=== PATIENT | female | born 1975 | race Caucasian/White ===

== ENCOUNTER 2016-09-23 13:18 | Emergency (ER) | payer OTHER ==
[2016-09-23 13:32] VITALS: BMI 23.0
--- NOTE | 2016-09-23 14:35 | PDOC ---
History of Present Illness - General History Source: Patient Exam Limitations: No Limitations - History of Present Illness Initial Comments: 09/23/16 16:01 The patient is a 41 year old female with no significant past medical history, who presents to the ER with palpitations, headache, and chest pain for one day. Patient states the symptoms are on and off. She localizes the chest pain to the center. She says her symptoms initially begin with loss of sleep, then anxiety, then chest pain and headache. Patient states she feels palpitations and often throbbing sensations in the ear. She denies nausea, vomiting, abdominal pain, fever, chills, or cough. <Patria Osuna - Last Filed: 09/23/16 16:01> <Jc Garcia - Last Filed: 09/24/16 08:48> - General Chief Complaint: Tachycardia Stated Complaint: TACHYCARDIA, HEADACHES Past History <Patria Osuna - Last Filed: 09/23/16 16:01> - Past Medical History Other medical history: denies - Psycho/Social/Smoking Cessation Hx Suicidal Ideation: No Smoking History: Never smoked Information on smoking cessation initiated: No Hx Alcohol Use: No Drug/Substance Use Hx: No Substance Use Type: None <Jc Garcia - Last Filed: 09/24/16 08:48> - Past Medical History Allergies/Adverse Reactions: Allergies Allergy/AdvReac Type Severity Reaction Status Date / Time Penicillins Allergy Verified 09/23/16 13:32 Home Medications: Ambulatory Orders Alprazolam [Xanax] 0.25 mg PO Q8H PRN #5 tablet MDD 3 09/23/16 Review of Systems - Review of Systems Able to Perform ROS?: Yes Comments:: 09/23/16 16:01 CONSTITUTIONAL: Absent: fever, no chills, no fatigue EYES: Absent: visual changes ENT: Absent: ear pain, no sore throat CARDIOVASCULAR: Present: chest pain, palpitations RESPIRATORY: Absent: cough, no SOB GI: Absent: abdominal pain, no nausea, no vomiting, no constipation, no diarrhea GENITOURINARY: Absent: dysuria, no frequency, no hematuria MUSCULOSKELETAL: Absent: back pain, no arthralgia, no myalgia SKIN: Absent: rash NEURO: Present: headache <ThaoPatria - Last Filed: 09/23/16 16:01> *Physical Exam - Vital Signs Last Vital Signs Temp Pulse Resp BP Pulse Ox 99.2 F 88 17 127/84 99 09/23/16 13:30 09/23/16 15:56 09/23/16 15:56 09/23/16 13:30 09/23/16 15:56 - Physical Exam Comments: 09/23/16 16:02 GENERAL: Well-appearing, well-nourished. Appears teary eyed. HEENT: Dry mucous membranes. Normocephalic, atraumatic. PERRL, EOM intact. CARDIOVASCULAR: Normal S1, S2. Regular rate and rhythm. PULMONARY: Clear to auscultation bilaterally. ABDOMEN: Soft, non-distended, non-tender. EXTREMITIES: Normal ROM in all four extremities. No gross deformities. SKIN: Warm, dry. No rash NEUROLOGICAL: No focal neurological deficits. <Patria Osuna - Last Filed: 09/23/16 16:01> - Vital Signs Last Vital Signs Temp Pulse Resp BP Pulse Ox 99.2 F 105 H 18 127/84 99 09/23/16 13:30 09/23/16 13:30 09/23/16 13:30 09/23/16 13:30 09/23/16 13:30 <Jc Garcia - Last Filed: 09/24/16 08:48> ED Treatment Course - LABORATORY CBC & Chemistry Diagram: 09/23/16 14:45 09/23/16 14:45 - ADDITIONAL ORDERS Additional order review: Laboratory Results 09/23/16 14:45 Serum , Qual Negative Urine Color Yellow Urine Appearance Clear Urine pH 5.0 Ur Specific [place] 1.016 Urine Protein Negative Urine Glucose (UA) Negative Urine Ketones 2+ H Urine Blood Negative Urine Nitrite Negative Urine Bilirubin Negative Urine Urobilinogen Negative Ur Leukocyte Esterase Negative 09/23/16 14:45 Influenza Types A,B Antigen (NATALIE) - Final Nasopharyngeal Swab - Final 09/23/16 14:45 RBC 4.61 MCV 92.6 MCHC 33.2 RDW 12.9 MPV 9.3 Neutrophils % 76.6 Lymphocytes % 14.6 Monocytes % 7.4 Eosinophils % 0.8 Basophils % 0.6 - Medications Given in the ED: ED Medications Discontinued Medications Generic Name Dose Route Start Last Admin Trade Name Freq PRN Reason Stop Dose Admin Acetaminophen 650 mg 09/23/16 15:27 09/23/16 15:27 Tylenol - PO 09/23/16 15:28 650 mg NOW ONE Administration Sodium Chloride 1,000 mls @ 1,000 mls/hr 09/23/16 14:42 09/23/16 14:45 Normal Saline - IV 09/23/16 15:41 1,000 mls/hr ASDIR STA Administration <Patria Osuna - Last Filed: 09/23/16 16:01> - LABORATORY CBC & Chemistry Diagram: 09/23/16 14:45 09/23/16 14:45 <Jc Garcia - Last Filed: 09/24/16 08:48> *DC/Admit/Observation/Transfer - Attestations Scribe Attestion: 09/23/16 16:06 Documentation prepared by Patria Osuna, acting as center medical director for Jc Garcia MD, /DO. <Patria Osuna - Last Filed: 09/23/16 16:01> - Discharge Dispostion Admit: No <Jc Garcia - Last Filed: 09/24/16 08:48> Diagnosis at time of Disposition: Heart palpitations, Panic attack - Discharge Dispostion Disposition: HOME Condition at time of disposition: Improved - Prescriptions Prescriptions: Alprazolam [Xanax] 0.25 mg PO Q8H PRN #5 tablet MDD 3 PRN Reason: Anxiety - Patient Instructions Printed Discharge Instructions: Anxiety and Panic Attacks (Alternative Therapy) , DI for Palpitations Additional Instructions: Activity as tolerated. Stay hydrated. Blood tests and an EKG showed no acute abnormalities, only some dehydration. As discussed, take Xanax as prescribed only as needed for anxiety. You should follow up with your primary doctor as soon as possible regarding today's emergency department visit. Return to the emergency department for any new or concerning symptoms, particularly uncontrollable anxiety, persistent palpitations or chest pain, severe weakness or dehydration.
[2016-09-23] MEDS ORDERED: SODIUM CHLORIDE 1,000 ML IV STA ×2 (14:42→16:36)
[2016-09-23 15:20] LABS: BASOPHIL 0.6 % (0-2.0); EOSINOPHIL 0.8 % (0-4.5); MCH 30.8 pg (25.7-33.7); MCHC 33.2 g/dl (32.0-36.0); MEAN CELL VOLUME 92.6 fl (80-96); MEAN PLT VOLUME 9.3 fl (7.5-11.1); NEUTROPHILS 76.6 % (42.8-82.8); PLATELET COUNT 298 K/MM3 (134-434); RDW 12.9 % (11.6-15.6); WHITE BLOOD COUNT 8.6 K/mm3 (4.0-10.0)
[2016-09-23 15:22] LABS: URINE APPEARANCE CLEAR; URINE BILIRUBIN NEGATIVE (NEGATIVE); URINE BLOOD NEGATIVE (NEGATIVE); URINE COLOR YELLOW; URINE GLUCOSE (UA) NEGATIVE (NEGATIVE); URINE KETONE 2+ (NEGATIVE); URINE LEUK ESTERASE NEGATIVE (NEGATIVE); URINE NITRITE NEGATIVE (NEGATIVE); URINE PROTEIN NEGATIVE (NEGATIVE); URINE UROBILINOGEN NEGATIVE E.U./dl (0.2-1.0)
[2016-09-23] MEDS ORDERED: ACETAMINOPHEN 325 MG TABLET (FP) ONE (15:25)
[2016-09-23] MEDS ORDERED: ACETAMINOPHEN 325 MG TABLET (FP) PO ONE (15:27)
[2016-09-23 16:09] LABS: ALBUMIN 4.5 g/dl (3.4-5.0); ALK PHOS 57 U/L (45-117); ANION GAP 13 (8-16); BILIRUBIN,TOTAL 1.6 mg/dL (0.2-1.0); CALCIUM 9.2 mg/dL (8.5-10.1); CO2 25 mmol/L (21-32); CREATININE 0.7 mg/dL (0.55-1.02); GLUCOSE,RANDOM 81 mg/dL (74-106); SGOT/AST 11 U/L (15-37); SGPT/ALT 12 U/L (12-78); TOT PROT 7.8 g/dl (6.4-8.2)
[2016-09-23 17:05] LABS: TROPONIN I < 0.02 ng/ml (0.00-0.05)
--- NOTE | 2016-09-23 17:40 | PDOC ---
*Physical Exam - Vital Signs Last Vital Signs Temp Pulse Resp BP Pulse Ox 99.2 F 88 17 127/84 99 09/23/16 13:30 09/23/16 15:56 09/23/16 15:56 09/23/16 13:30 09/23/16 15:56 - Physical Exam Comments: 09/23/16 17:32 VSS, HR 74 well appearing, calm now abd benign cardiopulmonary exam normal ED Treatment Course - LABORATORY CBC & Chemistry Diagram: 09/23/16 14:45 09/23/16 14:45 - ADDITIONAL ORDERS Additional order review: Laboratory Results 09/23/16 09/23/16 14:45 14:45 Sodium 142 Potassium 4.1 Chloride 104 Carbon Dioxide 25 Anion Gap 13 BUN 9 Creatinine 0.7 Creat Clearance w eGFR > 60 Random Glucose 81 Calcium 9.2 Total Bilirubin 1.6 H AST 11 L ALT 12 Alkaline Phosphatase 57 Creatine Kinase 59 Troponin I < 0.02 Total Protein 7.8 Albumin 4.5 Serum , Qual Negative Urine Color Yellow Urine Appearance Clear Urine pH 5.0 Ur Specific [place] 1.016 Urine Protein Negative Urine Glucose (UA) Negative Urine Ketones 2+ H Urine Blood Negative Urine Nitrite Negative Urine Bilirubin Negative Urine Urobilinogen Negative Ur Leukocyte Esterase Negative 09/23/16 14:45 Influenza Types A,B Antigen (NATALIE) - Final Nasopharyngeal Swab - Final 09/23/16 14:45 RBC 4.61 MCV 92.6 MCHC 33.2 RDW 12.9 MPV 9.3 Neutrophils % 76.6 Lymphocytes % 14.6 Monocytes % 7.4 Eosinophils % 0.8 Basophils % 0.6 - Medications Given in the ED: ED Medications Discontinued Medications Generic Name Dose Route Start Last Admin Trade Name Freq PRN Reason Stop Dose Admin Acetaminophen 650 mg 09/23/16 15:27 09/23/16 15:27 Tylenol - PO 09/23/16 15:28 650 mg NOW ONE Administration Sodium Chloride 1,000 mls @ 1,000 mls/hr 09/23/16 14:42 09/23/16 14:45 Normal Saline - IV 09/23/16 15:41 1,000 mls/hr ASDIR STA Administration Medical Decision Making - Medical Decision Making 09/23/16 17:33 Received signout on this otherwise healthy 41-year-old female. Differential is viral syndrome and plan was to discharge after troponin and second liter of IV fluids. After discussion with the patient and her family, symptoms seem more consistent with anxiety attack, she has been recently anxious and describes constellation of palpitations with nervousness and brief headache. She now feels well, admits to stressors of late, and feels as though this was a panic attack. Never had one before. Labs are within normal limits, is negative, troponin returned and negative. EKG is sinus at 80 and normal, no ischemic changes. Feels well, tolerating by mouth, received IV fluids, and agrees with discharge plan. Will give brief course of anxiolytic as needed, understands return criteria, will follow-up with her primary physician. *DC/Admit/Observation/Transfer Diagnosis at time of Disposition: Heart palpitations, Panic attack - Discharge Dispostion Disposition: HOME Condition at time of disposition: Improved - Prescriptions Prescriptions: Alprazolam [Xanax] 0.25 mg PO Q8H PRN #5 tablet MDD 3 PRN Reason: Anxiety - Patient Instructions Printed Discharge Instructions: DI for Palpitations, Anxiety and Panic Attacks (Alternative Therapy) Additional Instructions: Activity as tolerated. Stay hydrated. Blood tests and an EKG showed no acute abnormalities, only some dehydration. As discussed, take Xanax as prescribed only as needed for anxiety. You should follow up with your primary doctor as soon as possible regarding today's emergency department visit. Return to the emergency department for any new or concerning symptoms, particularly uncontrollable anxiety, persistent palpitations or chest pain, severe weakness or dehydration.
[2016-09-23 17:53] VITALS: BP 109/74; PULSE 82; TEMP 97.9
--- NOTE | 2016-09-24 11:22 | EKG ---
Test Reason : Blood Pressure : / mmHG Vent. Rate : 080 BPM Atrial Rate : 080 BPM P-R Int : 116 ms QRS Dur : 086 ms QT Int : 366 ms P-R-T Axes : 069 000 027 degrees QTc Int : 422 ms NORMAL SINUS RHYTHM POSSIBLE LEFT ATRIAL ENLARGEMENT BORDERLINE ECG NO PREVIOUS ECGS AVAILABLE Confirmed by LOPEZ ROMERO, VEENA ([id number]) on 09/24/2016 11:21:50 AM Referred By: Confirmed By:VEENA MARROQUIN MD
== END 2016-09-23 17:52 | disposition home or self-care (01) ==
LOC: JER 13:18
PROC: 3E0337Z Introduction of Electrolytic and Water Balance Substance into Peripheral Vein, Percutaneous Approach (ICD-10-PCS; principal; 2016-09-23)
DX: R00.2 Palpitations (principal); F41.0 Panic disorder [episodic paroxysmal anxiety]
CPT/HCPCS: 36415; 80053; 81003; 82550; 84484; 84703; 85025; 87804; 93005; 93010; 96360; 96361; 99284-25

== ENCOUNTER 2017-01-06 09:02 | Emergency (ER) | payer OTHER ==
[2017-01-06 09:06] VITALS: BP 127/65; PULSE 73; TEMP 98.3; BMI 24.4
[2017-01-06] MEDS ORDERED: IBUPROFEN 400 MG TABLET (FP) PO ONE (09:40)
[2017-01-06] MEDS ORDERED: IBUPROFEN 400 MG TABLET (FP) PO PRN (09:46)
--- NOTE | 2017-01-06 10:05 | PDOC ---
History of Present Illness - General Chief Complaint: Pain Stated Complaint: LT THUMB PAIN Time Seen by Provider: 01/06/17 09:13 - History of Present Illness Initial Comments: 01/06/17 10:06 CHIEF COMPLAINT: pain to L thumb. HISTORY OF PRESENT ILLNESS: 41 yo F with no PMH presents to ED with pain to left thumb. Patient states she was lifting heavy groceries yesterday when she felt pain to her left thumb. Denies any impact or trauma to thumb. No recent travel or sick contacts. PAST MEDICAL HISTORY: Denies past medical history FAMILY HISTORY: Denies SOCIAL HISTORY: Denies tobacco, alcohol, illicit drug use. SURGICAL HISTORY: Denies ALLERGIES: PCN REVIEW OF SYSTEMS Musculoskeletal: Pain to L thumb. No loss of sensation. Ski: Denies rash or easy bruising. PHYSICAL EXAM General Appearance: Well-appearing, appropriately dressed. No apparent distress. Respiratory/Chest: Lungs CTAB. Cardiovascular: RRR. S1, S2. Musculoskeletal/Extremities: Normal inspection. FROM of all extremities, normal capillary refill. Pelvis Stable. No CVA tenderness. No tenderness to extremities, pedal edema, swelling, erythema or deformity. Integumentary: TTP to MCP of L thumb, full ROM to all fingers and wrist b/l. Minimal ecchymosis to proximal thumb. Neurovascularly intact, normal capillary refill, pulses 2+. Appropriate color, dry, warm. 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 Fully oriented, alert. Appropriate mood/affect. Motor strength 5/5. No appreciable EOM palsy, facial droop or sensory deficit. Past History - Past Medical History Allergies/Adverse Reactions: Allergies Allergy/AdvReac Type Severity Reaction Status Date / Time Penicillins Allergy Verified 01/06/17 09:06 Home Medications: Ambulatory Orders Alprazolam [Xanax] 0.25 mg PO Q8H PRN #5 tablet MDD 3 09/23/16 Naproxen 250 mg PO BID #20 tablet 01/06/17 Other medical history: denies - Psycho/Social/Smoking Cessation Hx Suicidal Ideation: No Smoking History: Never smoked Information on smoking cessation initiated: No Hx Alcohol Use: No Drug/Substance Use Hx: No Substance Use Type: None *Physical Exam - Vital Signs Last Vital Signs Temp Pulse Resp BP Pulse Ox 98.3 F 73 17 127/65 100 01/06/17 09:04 01/06/17 09:04 01/06/17 09:04 01/06/17 09:04 01/06/17 09:04 *DC/Admit/Observation/Transfer Diagnosis at time of Disposition: Left thumb sprain Qualifiers: Encounter type: initial encounter Sprain of finger site: metacarpophalangeal joint Qualified Code(s): S63.642A - Sprain of metacarpophalangeal joint of left thumb, initial encounter - Discharge Dispostion Disposition: HOME Condition at time of disposition: Stable Admit: No - Prescriptions Prescriptions: Naproxen 250 mg PO BID #20 tablet - Referrals Referrals: Brian Larose MD [Staff Physician] - - Patient Instructions Printed Discharge Instructions: DI for Finger Sprain Additional Instructions: As discussed, take medication as prescribed and follow up with orthopedics if symptoms persist past 2-3 days. If you experience any tingling, numbness, or loss of sensation to your finger, or any new or worsening symptoms, please return to the ER.
== END 2017-01-06 10:10 | disposition home or self-care (01) ==
LOC: JERFT 09:02
DX: S63.642A Sprain of metacarpophalangeal joint of left thumb, initial encounter (principal); X50.0XXA Overexertion from strenuous movement or load, initial encounter; Y93.89 Activity, other specified; Y92.89 Other specified places as the place of occurrence of the external cause; Y99.8 Other external cause status
CPT/HCPCS: 99281-25

== ENCOUNTER 2017-02-27 12:31 | Emergency (ER) | payer OTHER ==
[2017-02-27 12:36] VITALS: BP 128/76; PULSE 76; TEMP 98.3; BMI 27.0
--- NOTE | 2017-02-27 13:31 | PDOC ---
History of Present Illness - General Chief Complaint: Injury Stated Complaint: INJURY (RT FOOT) Time Seen by Provider: 02/27/17 13:08 History Source: Patient Exam Limitations: No Limitations - History of Present Illness Initial Comments: 02/27/17 13:48 My chief complaint: Right ankle laceration History of present illness: Patient is a 41-year-old female with no significant medical history here today after hitting her right lateral ankle on the corner of a sharp cabinet door prior to arrival here. Patient has a small laceration to right lateral ankle the patient reports would not stop bleeding so she came here. Patient reports that the area is tender to touch. Patient is up-to-date with tetanus. 02/27/17 13:50 Occurred: reports: just prior to arrival Severity: reports: mild Pain Location: reports: lower extremity (ankle ) Method of Injury: Yes: direct blow (to corner of a cabinet) Modifying Factors: improves with: None Loss of Consciousness: no loss of consciousness Associated Symptoms (Fall): other (rt. lateral ankle laceration) Past History - Past Medical History Allergies/Adverse Reactions: Allergies Allergy/AdvReac Type Severity Reaction Status Date / Time Penicillins Allergy Verified 02/27/17 12:36 Home Medications: Ambulatory Orders Alprazolam [Xanax] 0.25 mg PO Q8H PRN #5 tablet MDD 3 09/23/16 Naproxen 250 mg PO BID #20 tablet 01/06/17 Other medical history: PATIENT DENIES MEDICAL HISTORY - Psycho/Social/Smoking Cessation Hx Suicidal Ideation: No Smoking History: Never smoked Hx Alcohol Use: No Drug/Substance Use Hx: No Substance Use Type: None Review of Systems - Review of Systems Able to Perform ROS?: Yes Constitutional: No: Symptoms Reported HEENTM: No: Symptoms Reported Respiratory: No: Symptoms reported Cardiac (ROS): No: Symptoms Reported ABD/GI: No: Symptoms Reported : No: Symptoms Reported Musculoskeletal: Yes: Joint Pain (rt. lateral ankle ), Joint Swelling (slight rt. lateral ankle ) Integumentary: Yes: Other (laceration rt. lateral ankle approx 2.6 cm x 0-.25 cm ) Neurological: No: Symptoms reported *Physical Exam - Vital Signs Last Vital Signs Temp Pulse Resp BP Pulse Ox 98.3 F 76 16 128/76 99 02/27/17 12:33 02/27/17 12:33 02/27/17 12:33 02/27/17 12:33 02/27/17 12:33 - Physical Exam General Appearance: Yes: Appropriately Dressed Vascular Pulses: Dorsalis-Pedis (R): 4+ Extremity: positive: Normal Capillary Refill, Normal Range of Motion (rt. ankle/ foot/toes), Tender (rt. lateral ankle ), Swelling (minimal rt. lateral ankle) Integumentary: positive: Normal Color (rt. ankle/foot ), Other (laceration rt. lateral ankle approx 2.6 cm x 0.25 cm linear) Neurologic: positive: Normal Response, Respond to painful stimul (rt. ankle/foot ). negative: Numbness, Sensory Deficit (rt. ankle ) Procedures - Consent Consent obtained: From Patient - Laceration/Wound Repair Right Lower Lateral Distal Ankle Wound Length: to 2.5 cm Wound Explored: clean Wound's Depth, Shape: superficial, linear Irrigated w/ Saline: Yes Betadine Prep: Yes Anesthesia: 1% Lidocaine Amount of Anesthetic (ccs): 2 Wound Repaired With: Sutures Suture Size/Type: 4:0 Number of Sutures: 4 (interrupted) Sterile Dressing Applied: Yes (rt. ankle) Splint Applied: No Medical Decision Making - Medical Decision Making 02/27/17 13:50 Patient is a 41-year-old female with no significant medical history here today after hitting her right lateral ankle on the corner of a sharp cabinet door prior to arrival here. Patient has a small laceration to right lateral ankle the patient reports would not stop bleeding so she came here. Patient reports that the area is tender to touch. Patient is up-to-date with tetanus. right lateral ankle pain with laceration r/o fracture rt. ankle PLAN: ibuprofen 600 mg po now xray rt. ankle/foot no acute fx [address] lateral ankle 02/27/17 14:24 *DC/Admit/Observation/Transfer Diagnosis at time of Disposition: Laceration of ankle without complication Qualifiers: Encounter type: initial encounter Laterality: right Qualified Code(s): S91.011A - Laceration without foreign body, right ankle, initial encounter - Discharge Dispostion Disposition: HOME Condition at time of disposition: Stable - Patient Instructions Additional Instructions: Clean right lateral ankle with antibacterial soap and water pat dry and apply tiny amount of bacitracin ointment cover with bandage when out of the home Elevate your right foot and ankle as much as possible today Return here in 10 days for suture removal or sooner if any discharge from wound or any redness around sutures May take ibuprofen as needed as directed by vocational rehabilitation supervisor for pain Patient voiced understanding of discharge instructions and all questions were answered - Post Discharge Activity Work/School Note: Back to Work
[2017-02-27] MEDS ORDERED: IBUPROFEN 600 MG TABLET (FP) PO ONE ×2 (13:38→13:41)
== END 2017-02-27 14:33 | disposition home or self-care (01) ==
LOC: JERFT 12:31
PROC: 0HQKXZZ Repair Right Lower Leg Skin, External Approach (ICD-10-PCS; principal; 2017-02-27)
DX: S91.011A Laceration without foreign body, right ankle, initial encounter (principal); W22.8XXA Striking against or struck by other objects, initial encounter; Y93.01 Activity, walking, marching and hiking; Y92.009 Unspecified place in unspecified non-institutional (private) residence as the place of occurrence of the external cause; Z88.0 Allergy status to penicillin
CPT/HCPCS: 12001-25; 73610-TC-RT; 73630-TC-RT; 99281-25

== ENCOUNTER 2017-03-09 15:05 | Emergency (ER) | payer OTHER ==
[2017-03-09 15:10] VITALS: BP 112/62; PULSE 69; TEMP 98; BMI 27.0
--- NOTE | 2017-03-09 16:21 | PDOC ---
Suture Removal/Wound Check HPI - History of Present Illness Chief Complaint: Suture/Staple Removal(Here) Stated Complaint: SUTURE REMOVAL Time Seen by Provider: 03/09/17 15:58 History Source: Yes: Patient Exam Limitations: Yes: No Limitations Treated at: [facility] Date of Last ED visit: 03/02/17 - Previous ED Treatment Type of procedure performed on last visit: Yes: Laceration Repair Tetanus Immunization: Yes: Up to Date Past History - Past Medical History Allergies/Adverse Reactions: Allergies Penicillins Allergy (Verified 03/09/17 15:06) Home Medications: Ambulatory Orders Alprazolam [Xanax] 0.25 mg PO Q8H PRN #5 tablet MDD 3 09/23/16 Naproxen 250 mg PO BID #20 tablet 01/06/17 General: Yes: no pertinent history Surgical History: Yes: No Surgical History Psych History: Yes: No Pertinent Psych Hx. - Immunization History Tetanus Status: Unknown - Social History Smoking Status: Never smoked Suture Removal/Wound Check PE - Physical Exam Comments: 03/09/17 16:19 Minor suture irritation and scabbing. Area cleansed, 4 sutures removed without difficulty, some bleeding, local suture irritation. No drainage, no evidence of infection. Bacitracin applied, patient encouraged to leave area covered to prevent from rubbing against shoes. *Review of Systems - Review of Systems Constitutional: No: Symptoms Reported Integumentary: No: Symptoms Reported Hematologic/Lymphatic: No: Symptoms Reported All Other Systems: Reviewed and Negative *DC/Admit/Observation/Transfer Diagnosis at time of Disposition: Visit for suture removal - Discharge Dispostion Disposition: HOME Condition at time of disposition: Good Admit: No - Patient Instructions Additional Instructions: Keep area covered until scab falls off from rubbing again shoes. Any increased redness, swelling, or signs of infection return to ER
== END 2017-03-09 16:31 | disposition home or self-care (01) ==
LOC: JERFT 15:05
DX: Z48.02 Encounter for removal of sutures (principal)
CPT/HCPCS: 99281-25

== ENCOUNTER 2018-09-17 17:42 | Emergency (ER) | payer OTHER ==
--- NOTE | 2018-09-17 17:57 | PDOC ---
Rapid Medical Evaluation Time Seen by Provider: 09/17/18 17:55 Medical Evaluation: Allergies Allergy/AdvReac Type Severity Reaction Status Date / Time Penicillins Allergy Verified 09/17/18 17:55 09/17/18 17:56 The patient presents with a chief complaint of: fevr, cough, and nasal congestion x 2 weeks intermittently I have performed a brief in-person evaluation of this patient Pertinent physical exam findings: ambulatory, in no respiratory distress, vss, I have ordered the following: influenza swab The patient will proceed to the ED for further evaluation. Discharge Disposition - Diagnosis URI (upper respiratory infection) - Referrals - Patient Instructions - Post Discharge Activity
[2018-09-17 17:58] VITALS: BP 124/86; PULSE 96; TEMP 98.2; BMI 23.6
--- NOTE | 2018-09-17 19:23 | PDOC ---
History of Present Illness - General Chief Complaint: Respiratory Stated Complaint: R/O FLU Time Seen by Provider: 09/17/18 17:55 History Source: Patient Exam Limitations: No Limitations - History of Present Illness Initial Comments: CHIEF COMPLAINT: 43 y/o female c/o runny nose, nasal congestion, chills, dry cough x 2 weeks. HISTORY OF PRESENT ILLNESS: She denies fever and states she's never felt warm. The cough is worse at night. She has been taking robitussin. She did not have the flu shot this year. She denies CHAPMAN, neck pain, earache, sore throat, n/ v/d, CP, SOB, abd pain, back pain. Vital signs on arrival are within normal limits. REVIEW OF SYSTEMS: GENERAL/CONSTITUTIONAL: +chills at night. No fever. No weakness. No weight change. HEAD, EYES, EARS, NOSE AND THROAT: +runny nose. No change in vision. No ear pain or discharge. No sore throat. CARDIOVASCULAR: No chest pain or shortness of breath. RESPIRATORY: +dry cough. No wheezing or hemoptysis. GASTROINTESTINAL: No abd pain, nausea, vomiting, diarrhea. GENITOURINARY: No dysuria, frequency, or change in urination. MUSCULOSKELETAL: No joint or muscle swelling or pain. No neck or back pain. SKIN: No rash or easy bruising. NEUROLOGIC: No headache, vertigo, loss of consciousness, or loss of sensation. PHYSICAL EXAM: GENERAL: The patient is awake, alert, and fully oriented, in no acute distress. She is well appearing with a red nose and intermittent dry cough. HEAD: Normal with no signs of trauma. No TTP of sinuses. ENT: Pupils equal, round and reactive to light, extraocular movements intact, sclera anicteric, conjunctiva clear. Mildly erythematous posterior pharynx. Nasal congestion. LUNGS: Clear to auscultation bilaterally. Normal excursion. No respiratory distress or use of accessory muscles. CV: RRR, S1/S2, no MRG. Cap refill < 2 sec. ABDOMEN: Soft, non-distended, non-tender even to deep palpation, no hepatomegaly or splenomegaly, no masses. EXTREMITIES: Normal range of motion, no edema. NEUROLOGICAL: Normal speech, normal gait. CN II-XII grossly intact. SKIN: Warm, dry, normal turgor, no rashes or lesions noted. Past History - Past Medical History Allergies/Adverse Reactions: Allergies Allergy/AdvReac Type Severity Reaction Status Date / Time Penicillins Allergy Verified 09/17/18 17:55 - Suicide/Smoking/Psychosocial Hx Smoking History: Never smoked Have you smoked in the past 12 months: No Hx Alcohol Use: No Drug/Substance Use Hx: No Substance Use Type: None *Physical Exam - Vital Signs Last Vital Signs Temp Pulse Resp BP Pulse Ox 98.2 F 96 H 18 124/86 99 09/17/18 17:56 09/17/18 17:56 09/17/18 17:56 09/17/18 17:56 09/17/18 17:56 Moderate Sedation - Procedure Monitoring Vital Signs: Procedure Monitoring Vital Signs Temperature 98.2 F 09/17/18 17:56 Pulse Rate 96 H 09/17/18 17:56 Respiratory Rate 18 09/17/18 17:56 Blood Pressure 124/86 09/17/18 17:56 O2 Sat by Pulse Oximetry (%) 99 09/17/18 17:56 Medical Decision Making - Medical Decision Making A/P: 43 y/o afebrile female with common cold/URI/nasal congestion. Will suggest OTC meds and supportive care measures. Instructed her to f/u with her doctor in 1 week and return to the ER with any worsening or concerning symptoms. The patient verbalizes understanding of all instructions, has no further questions and is awaiting discharge. *DC/Admit/Observation/Transfer Diagnosis at time of Disposition: Nasal congestion, Rhinorrhea URI (upper respiratory infection) Qualifiers: URI type: unspecified URI Qualified Code(s): J06.9 - Acute upper respiratory infection, unspecified - Discharge Dispostion Disposition: HOME Condition at time of disposition: Good - Referrals Referrals: Brady Leach MD [Staff Physician] - Call tomorrow - Patient Instructions Printed Discharge Instructions: DI for Nasal Congestion, DI for Common Cold, DI for Viral Upper Respiratory Infection -- Adult Additional Instructions: Discharge Instructions: -You have a cold and nasal congestion -You can take over the counter Sudafed, Claritin and Ibuprofen -Please drink plenty of fluids -Prop your head up to sleep with pillows. -Follow up with your doctor or with Dr. Leach in 1 week Instrucciones de descarga: -Tienes un resfriado y congestin nasal. -Usted puede hacerse cargo del mostrador Sudafed, Claritin e Ibuprofen -Por favor, jerod muchos lquidos. - Levanta la darlyn para dormir con almohadas. -Seguir con arauz mdico o con el Dr. Leach en 1 semana. - Post Discharge Activity Forms/Work/School Notes: Back to Work
== END 2018-09-17 19:29 | disposition home or self-care (01) ==
LOC: JERFT 17:42
DX: J06.9 Acute upper respiratory infection, unspecified (principal)
CPT/HCPCS: 87804; 99281-25

== ENCOUNTER 2021-12-23 18:07 | Emergency (ER) | payer SELFPAY ==
[2021-12-23 18:16] VITALS: BP 138/84; PULSE 70; TEMP 97.8; BMI 22.4
[2021-12-23] MEDS ORDERED: SODIUM CHLORIDE 0.9% 500 ML INFUS.BAG IV ONE (21:10)
[2021-12-23] MEDS ORDERED: ONDANSETRON 4 MG/2 ML VIAL IVPUSH ONE (21:10)
[2021-12-23] MEDS ORDERED: morphine CARPU-JECT 4 MG/1 ML DISP.SYRIN IVPUSH ONE (21:11)
[2021-12-23] MEDS ORDERED: ONDANSETRON 4 MG/2 ML VIAL ONE (21:17)
[2021-12-23] MEDS ORDERED: morphine SULFATE 4 MG/ML VIAL ONE (21:17)
[2021-12-23 21:55] LABS: HEMATOCRIT 36.4 % (32.4-45.2); HEMOGLOBIN 12.3 GM/dL (10.7-15.3); MCH 29.2 pg (25.7-33.7); MCHC 33.6 g/dl (32.0-36.0); MEAN PLT VOLUME 8.9 fl (7.5-11.1); PLATELET COUNT 299 10^3/uL (134-434); RBC 4.19 M/mm3 (3.60-5.2); RDW 14.7 % (11.6-15.6); WHITE BLOOD COUNT 16.3 K/mm3 (4.0-10.0)
[2021-12-23 21:59] LABS: URINE APPEARANCE CLEAR; URINE BILIRUBIN NEGATIVE (NEGATIVE); URINE COLOR YELLOW; URINE GLUCOSE (UA) NEGATIVE (NEGATIVE); URINE KETONE NEGATIVE (NEGATIVE); URINE LEUK ESTERASE NEGATIVE (NEGATIVE); URINE NITRITE NEGATIVE (NEGATIVE); URINE PROTEIN NEGATIVE (NEGATIVE); URINE UROBILINOGEN 0.2 mg/dL (0.2-1.0)
[2021-12-23 22:12] LABS: CALCIUM 9.4 mg/dL (8.5-10.1)
[2021-12-23 22:13] LABS: ALBUMIN 4.4 g/dl (3.4-5.0); BLOOD UREA NITROGEN 12.6 mg/dL (7-18)
[2021-12-23 22:16] LABS: CREATININE 0.9 mg/dL (0.55-1.3)
[2021-12-23 22:18] LABS: BILIRUBIN,TOTAL 1.1 mg/dL (0.2-1); TOT PROT 7.8 g/dl (6.4-8.2)
[2021-12-23 22:45] LABS: ACTIVATED PTT 27.1 SECONDS (25.2-36.5); INR 1.07 (0.83-1.09); PROTHROMBIN TIME (PATIENT) 12.3 SEC (9.7-13.0)
[2021-12-23 23:04] LABS: ANISOCYTOSIS 0; MACROCYTOSIS 0; TEAR DROP CELLS 1+
[2021-12-24] MEDS ORDERED: SODIUM CHLORIDE 0.9% 500 ML INFUS.BAG IV ONE (00:14)
== END 2021-12-24 01:39 | disposition home or self-care (01) ==
LOC: JER 18:07
PROC: 3E033GC Introduction of Other Therapeutic Substance into Peripheral Vein, Percutaneous Approach (ICD-10-PCS; principal; 2021-12-23)
DX: N20.1 Calculus of ureter (principal); R11.2 Nausea with vomiting, unspecified
CPT/HCPCS: 36415; 74176-TC; 80053; 81003; 84703; 85025; 85610; 85730; 86850; 86900; 86901; 87086; 99285-25

== ENCOUNTER 2022-09-24 21:06 | Emergency (ER) | payer OTHER ==
[2022-09-24 21:14] VITALS: TEMP 97.8; BMI 23.0
[2022-09-25 00:49] LABS: BASO % 0.9 % (0-2.0); EOS % 2.5 % (0-4.5); HEMATOCRIT 36.2 % (32.4-45.2); HEMOGLOBIN 11.8 GM/dL (10.7-15.3); LYMPH % 24.7 % (8-40); MCH 28.2 pg (25.7-33.7); MCHC 32.7 g/dl (32.0-36.0); MEAN CELL VOLUME 86.2 fl (80-96); MEAN PLT VOLUME 8.6 fl (7.5-11.1); MONO % 7.6 % (3.8-10.2); NEUT % 64.3 % (42.8-82.8); PLATELET COUNT 306 10^3/uL (134-434); RDW 15.1 % (11.6-15.6); WHITE BLOOD COUNT 8.4 K/mm3 (4.0-10.0)
[2022-09-25 01:06] LABS: ALBUMIN 3.8 g/dl (3.4-5.0); BLOOD UREA NITROGEN 13.6 mg/dL (7-18)
[2022-09-25 01:09] LABS: CREATININE 0.8 mg/dL (0.55-1.3)
[2022-09-25 01:11] LABS: BILIRUBIN,TOTAL 0.6 mg/dL (0.2-1); TOT PROT 7.4 g/dl (6.4-8.2)
[2022-09-25] MEDS ORDERED: LISINOPRIL 5 MG TABLET PO ONE (01:15)
[2022-09-25] MEDS ORDERED: LISINOPRIL 5 MG TABLET ONE (01:19)
[2022-09-25 01:47] VITALS: BP 132/67; PULSE 76; RESP 18
== END 2022-09-25 01:47 | disposition home or self-care (01) ==
LOC: JER 21:06
DX: R51.9 Headache, unspecified (principal); I10 Essential (primary) hypertension
CPT/HCPCS: 36415; 80053; 85025; 93005; 93010; 99284-25